=== PATIENT | male | born 1960 | race Two or more races ===

== ENCOUNTER 2019-02-22 04:50 | Inpatient (IN) | payer OTHER ==
[~2019-02-22] VITALS: Ht 172.7 cm; Wt 0.4 kg
--- NOTE | 2019-02-22 04:53 | NUR ---
Code Cardiac from [facility] 40 min ETA from [facility] 427 labor standards director called in by Security 435 All labor standards director in route per Mo from [employer] [phone] Douglas called back, on way in 449 Code Cardiac paged overhead
[2019-02-22] MEDS ORDERED: ONDANSETRON 2MG/ML, 2ML IVPush ONE (05:00)
[2019-02-22] MEDS ORDERED: MORPHINE SULFATE 4 MG/ML, 1ML IVPush PRN (05:00)
[2019-02-22] MEDS ORDERED: MORPHINE SULFATE 4 MG/ML, 1ML ONE (05:01)
[2019-02-22] MEDS ORDERED: FENTANYL PF 100 MCG/2ML ONE ×2 (05:05→13:04)
[2019-02-22] MEDS ORDERED: MIDAZOLAM 1 MG/ML, 5ML ONE ×2 (05:05→13:04)
[2019-02-22] MEDS ORDERED: NITROGLYCERIN 5 MG/ML, 10ML ONE (05:06)
[2019-02-22] MEDS ORDERED: HEPARIN 1,000 UNITS/ML, 10ML ONE (05:06)
[2019-02-22] MEDS ORDERED: VERAPAMIL 2.5 MG/ML, 2ML ONE (05:06)
[2019-02-22] MEDS ORDERED: LIDOCAINE 2%, 20ML ONE (05:06)
[2019-02-22] MEDS ORDERED: BIVALIRUDIN 250 MG ONE ×3 (05:06→14:41)
[2019-02-22] MEDS ORDERED: TICAGRELOR 90 MG TABLET ONE (05:06)
--- NOTE | 2019-02-22 05:08 | NUR ---
Pt is an active code cardiac. Driven via ambulance from [facility]. States cp since last night on L side of chest and radiate to L arm. Associated sob noted. Pt given 162 mg asa, 8 mg morphine, 4 mg zofran, and nitro paste applied via remsa. 4 mg morphine given upon admit to this ed. 2nd iv established and ekg accomplished directly upon admit. Spo2 on R thumb, bp cuff on L arm, extension tubing and ns set up to TKO. All belongings off pt. Awaiting tx to labourers.
--- NOTE | 2019-02-22 05:10 | NUR ---
Transluscent pad applied upon admit as well.
[2019-02-22 05:27] LABS: TROPONIN I 0.084 ng/mL (0.000-0.045)
[2019-02-22] MEDS: ASPIRIN 81 MG TABLET EC PO SCH (09:34)
[2019-02-22] MEDS: TICAGRELOR 90 MG TABLET PO SCH ×2 (09:34→21:00)
[2019-02-22] MEDS: METOPROLOL TARTRATE 25 MG TABLET PO SCH ×2 (10:04→18:31)
[2019-02-22] MEDS ORDERED: LIDOCAINE 1%, 20ML ONE (13:04)
[2019-02-22 13:23] LABS: BASOPHILS # (AUTO) 0.02 x10^3/uL (0-0.1); BASOPHILS % (AUTO) 0 % (0-1); EOSINOPHILS # (AUTO) 0.03 x10^3/uL (0-0.4); EOSINOPHILS % (AUTO) 1 % (1-7); LYMPHOCYTES # (AUTO) 1.32 x10^3/uL (1-3.4); LYMPHOCYTES % (AUTO) 19 % (22-44); MD NO; MEAN CORPUSCULAR HEMOGLOBIN 30.2 pg (27.5-34.5); MEAN CORPUSCULAR HGB CONC 33.4 g/dL (33.2-36.2); MEAN CORPUSCULAR VOLUME 90.6 fL (81-97); MEAN PLATELET VOLUME 8.4 fL (7.4-10.4); MONOCYTES # (AUTO) 0.68 x10^3/uL (0.2-0.8); MONOCYTES % (AUTO) 10 % (2-9); NEUTROPHILS % (AUTO) 71 % (42-75); PLATELET COUNT 205 x10^3/uL (130-400); RED BLOOD COUNT 4.51 x10^6/uL (4.38-5.82); RED CELL DISTRIBUTION WIDTH 13.1 % (9.4-14.8)
[2019-02-22 13:32] LABS: ANION GAP 8 mmol/L (5-15); CALCIUM 7.5 mg/dL (8.5-10.1); CHLORIDE 111 mmol/L (98-107); CREATININE 0.78 mg/dL (0.7-1.3)
[2019-02-22] MEDS ORDERED: BIVALIRUDIN 250 MG in SODIUM CHLORIDE 0.9% 50 ML IV SCH (14:21)
[2019-02-22] MEDS: ATORVASTATIN 40 MG TABLET PO SCH (21:00)
[2019-02-23 04:30] VITALS: BP 93/58
[2019-02-23 05:04] LABS: ANION GAP 6 mmol/L (5-15); CALCIUM 7.7 mg/dL (8.5-10.1); CHLORIDE 109 mmol/L (98-107); CREATININE 0.88 mg/dL (0.7-1.3)
[2019-02-23] MEDS: METOPROLOL TARTRATE 25 MG TABLET PO SCH ×2 (05:31→20:47)
[2019-02-23] MEDS: ASPIRIN 81 MG TABLET EC PO SCH (05:31)
[2019-02-23] MEDS: TICAGRELOR 90 MG TABLET PO SCH ×2 (08:44→20:47)
[2019-02-23 20:13] VITALS: BP 102/63
[2019-02-23] MEDS: ATORVASTATIN 40 MG TABLET PO SCH (20:47)
[2019-02-24 01:17] VITALS: BP 98/64
[2019-02-24] MEDS: ASPIRIN 81 MG TABLET EC PO SCH (06:07)
[2019-02-24 08:02] VITALS: BP 110/71
[2019-02-24] MEDS: TICAGRELOR 90 MG TABLET PO SCH ×2 (09:33→20:30)
[2019-02-24] MEDS: METOPROLOL TARTRATE 25 MG TABLET PO SCH ×2 (09:33→18:12)
[2019-02-24 14:01] VITALS: BP 107/64
[2019-02-24 20:07] VITALS: BP 105/71
[2019-02-24] MEDS: ATORVASTATIN 40 MG TABLET PO SCH (20:30)
[2019-02-25 01:54] VITALS: BP 113/70
[2019-02-25] MEDS: METOPROLOL TARTRATE 25 MG TABLET PO SCH (06:22)
[2019-02-25] MEDS: ASPIRIN 81 MG TABLET EC PO SCH (06:22)
[2019-02-25] MEDS ORDERED: ATOR40TA78 PO (07:57)
[2019-02-25] MEDS ORDERED: ASPI81TA45 PO (07:57)
[2019-02-25] MEDS ORDERED: TICA90TA PO (07:57)
[2019-02-25] MEDS ORDERED: METO25TA35 PO (07:57)
[2019-02-25 08:24] VITALS: BP 103/66
[2019-02-25] MEDS: TICAGRELOR 90 MG TABLET PO SCH (08:56)
== END 2019-02-25 09:28 | disposition home or self-care (01) | DRG 247 ==
LOC: ED 05:32 → ICU 06:23 → 5SO 02-23 12:28
PROVIDERS: ADMIT Student in an Organized Health Care Education/Training Program; ATTEND Student in an Organized Health Care Education/Training Program
PROC: 027034Z Dilation of Coronary Artery, One Artery with Drug-eluting Intraluminal Device, Percutaneous Approach (ICD-10-PCS; principal; 2019-02-22)
PROC: 027034Z Dilation of Coronary Artery, One Artery with Drug-eluting Intraluminal Device, Percutaneous Approach (ICD-10-PCS; 2019-02-22)
PROC: 4A023N7 Measurement of Cardiac Sampling and Pressure, Left Heart, Percutaneous Approach (ICD-10-PCS; 2019-02-22)
PROC: 4A023N7 Measurement of Cardiac Sampling and Pressure, Left Heart, Percutaneous Approach (ICD-10-PCS; 2019-02-22)
PROC: B211YZZ Fluoroscopy of Multiple Coronary Arteries using Other Contrast (ICD-10-PCS; 2019-02-22)
PROC: B211YZZ Fluoroscopy of Multiple Coronary Arteries using Other Contrast (ICD-10-PCS; 2019-02-22)
PROC: B215YZZ Fluoroscopy of Left Heart using Other Contrast (ICD-10-PCS; 2019-02-22)
DX: I21.19 ST elevation (STEMI) myocardial infarction involving other coronary artery of inferior wall (principal); E78.5 Hyperlipidemia, unspecified; I25.10 Atherosclerotic heart disease of native coronary artery without angina pectoris; I25.82 Chronic total occlusion of coronary artery; Z87.891 Personal history of nicotine dependence
CPT/HCPCS: 36415; 93454; 93458; 96374; 99291; C9600; J3490; 71045; 80048; 84484; 85025; 87081; 93005; 93306; 93356; 99156; 99157; C1760; C1769; C1894; G0378; J0583; J1644; J2250; J3010; C1725; C1874; C1887; J2270; Q9967

== ENCOUNTER → 2020-03-18 | Outpatient (CLI) | payer OTHER ==
[~2020-03-18] MED LIST: ASPI81TA45 PO; ATOR40TA78 PO; METO25TA35 PO; REGADENOSON 0.4 MG/5 ML SYRINGE ONE; TICA90TA PO
== END | disposition home or self-care (01) ==
LOC: CFH 08:14
PROVIDERS: ATTEND Internal Medicine Cardiovascular Disease
DX: Z01.810 Encounter for preprocedural cardiovascular examination (principal); I25.10 Atherosclerotic heart disease of native coronary artery without angina pectoris
CPT/HCPCS: 78452; 93017; A9502; J2785